=== PATIENT | female | born 2005 | race Two or more races ===

== ENCOUNTER 2024-03-11 23:47 | Emergency (ER) | payer OTHER ==
[~2024-03-11] VITALS: Ht 157.5 cm; Wt 86.4 kg
[2024-03-11 23:57] VITALS: BP 130/83; PULSE 108; RESP 16; TEMP 98.6; O2SAT 100
[2024-03-12 01:06] LABS: ANION GAP 8 mmol/L (8-16); CALCIUM, TOTAL 8.8 mg/dL (8.8-10.5); CARBON DIOXIDE 28 mmol/L (22-29); CHLORIDE 103 mmol/L (98-107); GLOMERULAR FILTR. RATE CALC > 60 mL/min (>60); GLUCOSE,RANDOM 108 mg/dL (70-110); POTASSIUM 3.3 mmol/L (3.5-5.1); SODIUM SERUM 139 mmol/L (136-145); UREA NITROGEN, BLOOD 5 mg/dL (7-18)
[2024-03-12 01:41] LABS: BASOPHILS % (AUTO) 0.4 % (0.0-2.0); EOSINOPHILS % (AUTO) 1.1 % (1.0-6.0); HEMATOCRIT 33.7 % (36-46); HEMOGLOBIN 11.1 g/dL (12.0-16.0); LYMPHOCYTES # (AUTO) 3.1 K/uL (1.0-4.8); LYMPHOCYTES % (AUTO) 31.3 % (22.0-44.0); MEAN CORPUSCULAR HEMOGLOBIN 23.7 pg (26.0-34.0); MEAN CORPUSCULAR HGB CONC 32.9 G/dL (31.0-37.0); MEAN CORPUSCULAR VOLUME 72 fL (80-100); MONOCYTES # (AUTO) 0.7 K/uL (0.1-1.0); MONOCYTES % (AUTO) 7.2 % (2.0-9.0); NEUTROPHILS # (AUTO) 5.9 K/uL (1.8-7.7); PLATELET COUNT (AUTO) 273 K/uL (150-450); RED BLOOD CELL COUNT(AUTO) 4.67 MIL/uL (4.00-5.20); WHITE BLOOD COUNT (AUTO) 9.8 K/uL (4.5-11.0)
[2024-03-12 01:44] LABS: RBC MORPHOLOGY COMMENT ABNORMAL RBC MORPH
[2024-03-12] MEDS ORDERED: OMEP20 PO (02:29)
== END 2024-03-12 02:49 | disposition home or self-care (01) ==
LOC: EMS 23:49
DX: K29.70 Gastritis, unspecified, without bleeding (principal); D50.9 Iron deficiency anemia, unspecified; F32.A Depression, unspecified; K92.1 Melena; R53.1 Weakness; Z88.2 Allergy status to sulfonamides
CPT/HCPCS: 80048; 84703; 85025; 99283